=== PATIENT | female | born 1980 | race Caucasian/White ===

== ENCOUNTER 2017-08-04 16:24 | Emergency (ER) | payer OTHER ==
[~2017-08-04] VITALS: Ht 160 cm; Wt 61.2 kg
[~2017-08-04 16:24] MED LIST: ALBU90I INH; AZIT250 PO; AZIT500 PO; Bactrim Ds Tab1 EACH PO; CEPH500 PO; CLIN150 PO; CLIN300 PO; CYCL10 PO; Cipro500 MG PO; DIPH50 PO; DOXY100T53 PO; ESCI10; FAMO40 PO; FLAV100 PO; Flagyl500 MG PO; HYDACE5 PO; IBUP800 PO; LEVO750 PO; MULVITMINE PO; Macrobid 100 M100 MG PO; NAPR500 PO; NAPR550 PO; OXYACE5T PO; POLY17UD PO; PROACE100 PO; Pyridium100 MG PO; Pyridium200 MG PO; RXCEPH500 PO; RXCLIN PO; RXOXYACE PO; RXSULTRIDS PO; SERT100; SULTRIDS PO; TRAM50 PO; Ultram50 MG PO; Zofran Odt4 MG SL
[2017-08-04 17:29] LABS: Influenza A Negative (NEGATIVE); Influenza B Positive (NEGATIVE)
[2018-05-27] MEDS ORDERED: LORA2 PO (20:53)
== END 2017-08-04 18:00 | disposition home or self-care (01) ==
LOC: ER 16:24
PROVIDERS: Nurse Practitioner Family
DX: J11.1 Influenza due to unidentified influenza virus with other respiratory manifestations (principal); F17.200 Nicotine dependence, unspecified, uncomplicated; Z87.440 Personal history of urinary (tract) infections; Z88.0 Allergy status to penicillin; Z88.2 Allergy status to sulfonamides
CPT/HCPCS: 87804; 99283

== ENCOUNTER → 2017-10-11 | Outpatient (CLI) | payer OTHER ==
[~2017-10-11] MED LIST changes: +LORA2 PO
[2017-10-11 14:14] LABS: Source, Urine Voided
[2017-10-11 17:04] LABS: Appearance, Urine Turbid (Clear); Blood, Urine 4+ (Neg); Color, Urine Red (P-Yellow); Glucose Qualitative, Urine Neg (Neg); Ketones, Urine Neg (Neg); Leukocyte Esterase, Urine Neg (Neg); Nitrite, Urine Pos (Neg); Protein, Urine 3+ (Neg); Urobilinogen, Urine 4+ (Normal)
[2017-10-11 17:38] LABS: Bilirubin, Urine 3+ (Neg)
[2017-10-11 18:07] LABS: White Blood Cells, Urine 25-50 /hpf (0-5)
[2017-10-11 18:08] LABS: Amorphous Mod (0-Heavy); Bacteria Not Seen /hpf; Red Blood Cells, Urine 0-2 /hpf (0-2); Squamous Epithelial Cells Not Seen /hpf (Few)
== END | disposition home or self-care (01) ==
LOC: LAB 13:39
PROVIDERS: Physician Assistant
DX: N39.0 Urinary tract infection, site not specified (principal); R30.0 Dysuria
CPT/HCPCS: 81001; 87086

== ENCOUNTER → 2018-03-29 | Outpatient (CLI) | payer OTHER ==
[~2018-03-29] MED LIST changes: -LORA2 PO
[2018-03-31 15:09] LABS: HPV 16 Negative (Negative); HPV 18 Negative (Negative); HPV OTHER HR TYPES Positive (Negative)
== END | disposition home or self-care (01) ==
LOC: LAB 11:58 → LAB SHORT 11:58
PROVIDERS: Obstetrics & Gynecology
DX: Z01.419 Encounter for gynecological examination (general) (routine) without abnormal findings (principal)
CPT/HCPCS: 87624; G0123

== ENCOUNTER 2019-01-21 17:46 | Emergency (ER) | payer OTHER ==
[~2019-01-21] VITALS: Ht 160 cm; Wt 52.2 kg
[~2019-01-21 17:46] MED LIST changes: +HYDHCL25 PO; +LORA2 PO; +NITR100CA PO; +TRIDERM28.4 GM TOP
[2019-01-21] MEDS ORDERED: Vibramycin100 MG PO (18:30)
== END 2019-01-21 18:45 | disposition home or self-care (01) ==
LOC: ER 17:46
DX: L03.211 Cellulitis of face (principal); Z88.0 Allergy status to penicillin; Z88.2 Allergy status to sulfonamides; F17.210 Nicotine dependence, cigarettes, uncomplicated
CPT/HCPCS: 99283

== ENCOUNTER 2019-01-24 20:16 | Emergency (ER) | payer OTHER ==
[~2019-01-24] VITALS: Ht 160 cm; Wt 52.2 kg
[~2019-01-24 20:16] MED LIST changes: +Vibramycin100 MG PO
[2019-01-24 20:53] LABS: BASOPHILS ABSOLUTE AUTO 0.13 K/mm3 (0.00-0.23); BASOPHILS PERCENT AUTO 2 % (0-2); EOSINOPHILS ABSOLUTE AUTO 0.73 K/mm3 (0.00-0.68); EOSINOPHILS PERCENT AUTO 10 % (0-6); Hematocrit 40.8 % (33.0-51.0); Hemoglobin 13.5 g/dL (11.5-16.0); IMMATURE GRAN ABSOLUTE AUTO 0.01 K/mm3 (0.00-0.10); IMMATURE GRAN PERCENT AUTO 0 % (0-1); LYMPHOCYTES ABSOLUTE AUTO 3.11 K/mm3 (0.84-5.20); LYMPHOCYTES PERCENT AUTO 42 % (21-46); MONOCYTES ABSOLUTE AUTO 0.38 K/mm3 (0.16-1.47); MONOCYTES PERCENT AUTO 5 % (4-13); Mean Corpuscular HGB 29.2 pg (26.0-34.0); Mean Corpuscular HGB Conc 33.1 g/dL (31.5-36.5); Mean Corpuscular Volume 88 fL (80-100); NEUTROPHILS ABSOLUTE AUTO 3.06 K/mm3 (1.96-9.15); NEUTROPHILS PERCENT AUTO 41 % (41-73); Platelet Count 213 K/mm3 (150-400); RDW Coefficient Variation 12.3 % (11.7-14.2); RDW Standard Deviation 39.8 fL (35.1-46.3); Red Blood Cell Count 4.62 M/mm3 (3.80-5.20); White Blood Cell Count 7.42 K/mm3 (4.00-11.30)
[2019-01-24 21:14] LABS: Alanine Aminotransfer (ALT/SGP 14 U/L (12-78); Albumin, Blood 3.8 g/dL (3.4-5.0); Albumin/Globulin Ratio 1.1 (0.8-1.8); Alk Phos 119 U/L (50-136); Anion Gap 5 mmol/L (6-16); Aspartate Aminotrans (AST/SGOT 10 U/L (12-37); Bilirubin, Total 0.3 mg/dL (0.1-1.0); Blood Urea Nitrogen 10 mg/dL (8-24); Bun/Creatinine Ratio 13.5 (12.0-20.0); CO2, Blood 27 mmol/L (21-32); Calcium, Blood 8.4 mg/dL (8.5-10.1); Chloride, Blood 108 mmol/L (98-108); Creatinine, Blood 0.74 mg/dL (0.40-1.00); Globulin, Blood 3.4 g/dL (2.2-4.0); Glomerular Filtration Rate >60 (60-); Glucose, Blood 93 mg/dL (70-99); Sodium, Blood 140 mmol/L (136-145); Total Protein, Blood 7.2 g/dL (6.4-8.2); Troponin I <0.015 ng/mL (0.000-0.040)
== END 2019-01-25 00:05 | disposition home or self-care (01) ==
LOC: ER 20:16
PROVIDERS: Physician Assistant
DX: R07.89 Other chest pain (principal); F17.210 Nicotine dependence, cigarettes, uncomplicated; Z88.0 Allergy status to penicillin; Z88.2 Allergy status to sulfonamides; Z79.899 Other long term (current) drug therapy
CPT/HCPCS: 36415; 71046; 80053; 84484; 85025; 85379; 93005; 93010; 96374; 99285-25; J1885

== ENCOUNTER 2019-04-27 14:10 | Emergency (ER) | payer OTHER ==
[~2019-04-27] VITALS: Ht 160 cm; Wt 52.2 kg
[2019-04-27] MEDS ORDERED: MONDOXYNE NL100 MG PO (14:25)
== END 2019-04-27 14:52 | disposition home or self-care (01) ==
LOC: ER 14:10
DX: L03.211 Cellulitis of face (principal); Z88.0 Allergy status to penicillin; F17.210 Nicotine dependence, cigarettes, uncomplicated
CPT/HCPCS: 99282

== ENCOUNTER 2020-03-23 09:08 | Emergency (ER) | payer OTHER ==
[~2020-03-23] VITALS: Ht 160 cm; Wt 55.8 kg
[~2020-03-23 09:08] MED LIST changes: +MONDOXYNE NL100 MG PO; +Zithromax250 MG PO
[2020-03-23 09:49] LABS: Source, Urine Voided
[2020-03-23] MEDS ORDERED: INHALED STEROID (09:50)
[2020-03-23] MEDS ORDERED: ALBU90OI INH (09:50)
[2020-03-23] MEDS ORDERED: ALPR.25 PO (09:50)
[2020-03-23 09:54] LABS: Blood, Urine 3+ (Neg); Glucose Qualitative, Urine Neg (Neg); Ketones, Urine Neg (Neg); Leukocyte Esterase, Urine Neg (Neg); Nitrite, Urine Pos (Neg); Protein, Urine 2+ (Neg); Specific Gravity, Urine 1.015 (1.003-1.022); Urobilinogen, Urine 3+ (Normal)
[2020-03-23 10:00] LABS: Bilirubin, Urine 3+ (Neg)
[2020-03-23 10:01] LABS: Appearance, Urine Hazy (Clear); Color, Urine Orange (P-Yellow)
[2020-03-23 10:03] LABS: Bacteria Mod /hpf; Squamous Epithelial Cells Few /hpf (Few)
[2020-03-23 10:05] LABS: Renal Epithelial Rare /hpf (0-Rare)
[2020-03-23] MEDS ORDERED: CEFP200 PO (10:22)
== END 2020-03-23 10:27 | disposition home or self-care (01) ==
LOC: ER 09:08
PROVIDERS: Physician Assistant
DX: R10.9 Unspecified abdominal pain (principal); R53.81 Other malaise; R35.0 Frequency of micturition; Z88.0 Allergy status to penicillin; Z88.2 Allergy status to sulfonamides; F17.200 Nicotine dependence, unspecified, uncomplicated
CPT/HCPCS: 81001; 87086; 99283; A9270-GY

== ENCOUNTER 2020-08-05 12:43 | Emergency (ER) | payer OTHER ==
[~2020-08-05] VITALS: Ht 160 cm; Wt 59.0 kg
[~2020-08-05 12:43] MED LIST changes: +ALBU90OI INH; +ALPR.25 PO; +CEFP200 PO; +INHALED STEROID
[2020-08-05] MEDS ORDERED: ESCI10 PO (12:53)
[2020-08-05 13:49] LABS: BASOPHILS ABSOLUTE AUTO 0.15 K/mm3 (0.00-0.23); BASOPHILS PERCENT AUTO 2 % (0-2); EOSINOPHILS ABSOLUTE AUTO 0.65 K/mm3 (0.00-0.68); EOSINOPHILS PERCENT AUTO 8 % (0-6); Hematocrit 42.7 % (33.0-51.0); IMMATURE GRAN ABSOLUTE AUTO 0.02 K/mm3 (0.00-0.10); IMMATURE GRAN PERCENT AUTO 0 % (0-1); LYMPHOCYTES ABSOLUTE AUTO 2.19 K/mm3 (0.84-5.20); LYMPHOCYTES PERCENT AUTO 27 % (21-46); MONOCYTES ABSOLUTE AUTO 0.47 K/mm3 (0.16-1.47); MONOCYTES PERCENT AUTO 6 % (4-13); Mean Corpuscular HGB 29.2 pg (26.0-34.0); Mean Corpuscular HGB Conc 32.8 g/dL (31.5-36.5); Mean Corpuscular Volume 89 fL (80-100); Mean Platelet Volume 10.7 fL (9.1-12.4); NEUTROPHILS ABSOLUTE AUTO 4.62 K/mm3 (1.96-9.15); NEUTROPHILS PERCENT AUTO 57 % (41-73); Platelet Count 245 K/mm3 (150-400); RDW Coefficient Variation 12.2 % (11.7-14.2); RDW Standard Deviation 39.9 fL (35.1-46.3); Red Blood Cell Count 4.79 M/mm3 (3.80-5.20)
[2020-08-05 14:12] LABS: Alanine Aminotransfer (ALT/SGP 27 U/L (12-78); Albumin, Blood 3.6 g/dL (3.4-5.0); Alk Phos 110 U/L (50-136); Anion Gap 3 mmol/L (6-16); Aspartate Aminotrans (AST/SGOT 24 U/L (12-37); Bilirubin, Total 0.4 mg/dL (0.1-1.0); Blood Urea Nitrogen 8 mg/dL (8-24); Bun/Creatinine Ratio 11.8 (12.0-20.0); CO2, Blood 30 mmol/L (21-32); Calcium, Blood 8.4 mg/dL (8.5-10.1); Chloride, Blood 110 mmol/L (98-108); Creatinine, Blood 0.68 mg/dL (0.40-1.00); Globulin, Blood 3.6 g/dL (2.2-4.0); Glomerular Filtration Rate >60 (60-); Glucose, Blood 83 mg/dL (70-99); Potassium, Blood 3.5 mmol/L (3.5-5.5); Sodium, Blood 143 mmol/L (136-145); Total Protein, Blood 7.2 g/dL (6.4-8.2); Troponin I <0.015 ng/mL (0.000-0.040)
== END 2020-08-05 14:52 | disposition home or self-care (01) ==
LOC: ER 12:43
PROVIDERS: Emergency Medicine
DX: M94.0 Chondrocostal junction syndrome [Tietze] (principal); F17.210 Nicotine dependence, cigarettes, uncomplicated; Z79.899 Other long term (current) drug therapy; Z88.0 Allergy status to penicillin; Z88.2 Allergy status to sulfonamides
CPT/HCPCS: 36415; 71045; 80053; 84484; 85025; 93005; 93010

== ENCOUNTER 2022-03-21 13:38 | Emergency (ER) | payer OTHER ==
[~2022-03-21] VITALS: Ht 160 cm; Wt 58.1 kg
[~2022-03-21 13:38] MED LIST changes: +ESCI10 PO
[2022-03-21 14:25] LABS: BASOPHILS ABSOLUTE AUTO 0.16 K/mm3 (0.00-0.23); BASOPHILS PERCENT AUTO 2 % (0-2); EOSINOPHILS ABSOLUTE AUTO 1.28 K/mm3 (0.00-0.68); EOSINOPHILS PERCENT AUTO 17 % (0-6); Hematocrit 38.1 % (33.0-51.0); Hemoglobin 12.8 g/dL (11.5-16.0); IMMATURE GRAN ABSOLUTE AUTO 0.01 K/mm3 (0.00-0.10); IMMATURE GRAN PERCENT AUTO 0 % (0-1); LYMPHOCYTES ABSOLUTE AUTO 2.43 K/mm3 (0.84-5.20); LYMPHOCYTES PERCENT AUTO 32 % (21-46); MONOCYTES ABSOLUTE AUTO 0.41 K/mm3 (0.16-1.47); MONOCYTES PERCENT AUTO 5 % (4-13); Mean Corpuscular HGB 29.2 pg (26.0-34.0); Mean Corpuscular HGB Conc 33.6 g/dL (31.5-36.5); Mean Corpuscular Volume 87 fL (80-100); Mean Platelet Volume 10.7 fL (9.1-12.4); NEUTROPHILS ABSOLUTE AUTO 3.38 K/mm3 (1.96-9.15); NEUTROPHILS PERCENT AUTO 44 % (41-73); Platelet Count 223 K/mm3 (150-400); RDW Coefficient Variation 12.5 % (11.7-14.2); RDW Standard Deviation 39.6 fL (35.1-46.3); Red Blood Cell Count 4.38 M/mm3 (3.80-5.20); White Blood Cell Count 7.67 K/mm3 (4.00-11.30)
[2022-03-21 14:38] LABS: Albumin, Blood 3.5 g/dL (3.4-5.0); Albumin/Globulin Ratio 1.1 (0.8-1.8); Bilirubin, Total 0.3 mg/dL (0.1-1.0); Bun/Creatinine Ratio 15.4 (12.0-20.0); Calcium, Blood 8.2 mg/dL (8.5-10.1); Creatinine, Blood 0.65 mg/dL (0.40-1.00); Globulin, Blood 3.2 g/dL (2.2-4.0); Potassium, Blood 3.4 mmol/L (3.5-5.5); Total Protein, Blood 6.7 g/dL (6.4-8.2)
== END 2022-03-21 17:55 | disposition home or self-care (01) ==
LOC: ER 13:38
PROVIDERS: Physician Assistant
DX: R07.9 Chest pain, unspecified (principal); F17.200 Nicotine dependence, unspecified, uncomplicated; Z88.0 Allergy status to penicillin; Z88.2 Allergy status to sulfonamides; Z79.899 Other long term (current) drug therapy
CPT/HCPCS: 36415; 71045; 80053; 84484; 85025; 93005; 93010; 96374; 99284-25; J1885

== ENCOUNTER → 2023-03-28 | Outpatient (CLI) | payer OTHER ==
[2023-03-30 14:09] LABS: HPV 16 Negative (Negative); HPV 18 Negative (Negative); HPV OTHER HR TYPES Negative (Negative)
== END ==
LOC: LAB 15:10 → LAB SHORT 15:10
PROVIDERS: Student in an Organized Health Care Education/Training Program
DX: Z87.42 Personal history of other diseases of the female genital tract (principal)
CPT/HCPCS: 87624; G0145

== ENCOUNTER → 2023-06-21 | Outpatient (CLI) | payer OTHER ==
[2023-06-21 09:35] LABS: Source, Urine Clean Catch
[2023-06-21 09:47] LABS: White Blood Cells, Urine Not Seen /hpf (0-5)
[2023-06-21 09:48] LABS: Bacteria Not Seen /hpf; Red Blood Cells, Urine 0-2 /hpf (0-2); Squamous Epithelial Cells Rare /hpf (Few)
== END ==
LOC: LAB SHORT 09:29 → LAB 09:29
PROVIDERS: Physician Assistant Medical
DX: R30.0 Dysuria (principal); R35.0 Frequency of micturition
CPT/HCPCS: 81015

== ENCOUNTER → 2023-06-24 | Outpatient (CLI) | payer OTHER | LOC: LAB 10:25 → LAB SHORT 10:25 | DX: N39.0 Urinary tract infection, site not specified (principal) | CPT/HCPCS: 87077; 87086; 87186 ==